=== PATIENT | male | born 1940 | race Caucasian/White ===

== ENCOUNTER 2018-01-08 17:26 | Emergency (ER) | payer BC ==
[~2018-01-08] VITALS: Ht 167.6 cm; Wt 94.1 kg
[~2018-01-08 17:26] MED LIST: INSU3SUS11 SUBQ; LISI10TA11 PO
[2018-01-08 17:31] VITALS: BP 137/75
--- NOTE | 2018-01-08 17:40 | NUR ---
PT. CAME INTO THE ED W/ DUE TO HIS DOCTOR RECOMMENDING HE COMES TO THE ED DUE TO A LOW O2 SAT READING WHEN HE WENT INTO HIS DOCTORS OFFICE. PT. STATES " I AM NOT SOB , I FEEL FINE, NO PAIN, I DID START HAVING A SLIGHT COUGH THIS MORNING THOUGH ". PT. AAOX4, NO SOB, DENIES N/V/D, DENIES CHEST PAIN, SKIN PINK AND DRY TO TOUCH. LS: CLEAR ANTERIOR AND POSTERIOR BILATERALLY. 0/10 PAIN. 02 SAT IS 96%. ER MD NOTIFIED. WILL CONTINUE TO MONITOR.
--- NOTE | 2018-01-08 17:56 | NUR ---
DR. CHAHAL EVALUATING PATIENT
[2018-01-08 18:58] LABS: BASOPHILS % (AUTO) 0.7 % (0.0-2.0); EOSINOPHILS # (AUTO) 0.4 K/uL (0-0.4); EOSINOPHILS % (AUTO) 5.8 % (0.0-4.0); HEMATOCRIT 41.2 % (36-52); HEMOGLOBIN 13.4 g/dL (12.0-18.0); LYMPHOCYTES # (AUTO) 1.9 K/uL (2.0-11.5); LYMPHOCYTES % (AUTO) 31.7 % (20.5-51.1); MEAN CORPUSCULAR HEMOGLOBIN 29 pg (27-31); MEAN CORPUSCULAR HGB CONC 33 g/dL (33-37); MEAN CORPUSCULAR VOLUME 87.3 fL (80-94); MONOCYTES # (AUTO) 0.5 K/uL (0.8-1.0); MONOCYTES % (AUTO) 8.1 % (1.7-9.3); NEUTROPHILS # (AUTO) 3.3 K/uL (1.8-7.7); NEUTROPHILS % (AUTO) 53.7 % (42.2-75.2); PLATELET COUNT (AUTO) 133 K/uL (140-450); RED BLOOD CELL COUNT(AUTO) 4.72 MIL/uL (4.20-6.10); RED CELL DISTRIBUTION WIDTH 16.7 % (11.6-13.7); WHITE BLOOD COUNT (AUTO) 6.1 K/uL (4.8-10.8)
[2018-01-08 19:12] LABS: ANION GAP 10.1 (8-16); CARBON DIOXIDE 30.1 mmol/L (21-32); CHLORIDE 104 mmol/L (98-107); CREATININE 0.8 mg/dL (0.7-1.3); GLUCOSE 286 mg/dL (74-106); POTASSIUM 4.2 mmol/L (3.5-5.1); SODIUM SERUM 140 mmol/L (136-145); UREA NITROGEN, BLOOD 16 mg/dL (7-18)
[2018-01-08 19:18] LABS: ALBUMIN 3.2 g/dL (3.4-5.0); ASPARTATE AMINOTRANSFERASE 20 U/L (15-37); TOTAL BILIRUBIN 0.5 mg/dL (0.0-1.0)
--- NOTE | 2018-01-08 19:23 | NUR ---
REPORT RECEIVED FROM KARELY DUPONT
--- NOTE | 2018-01-08 19:35 | NUR ---
PT SITTING QUIETLY IN BED. NO C/O PAIN AT THIS TIME. PT STATES MED HX: DM/HTN. PT STATES HE TAKES INSULIN 70/30 BID 30 UNITS.
--- NOTE | 2018-01-08 20:39 | NUR ---
Patient discharged with v/s stable. Written and verbal after care instructions given and explained. Patient verbalized understanding. Ambulatory with steady gait. All questions addressed prior to discharge. Advised to follow up with PMD.
[2018-01-08 20:40] VITALS: BP 115/62
== END 2018-01-08 20:39 | disposition home or self-care (01) ==
LOC: MED 17:26
DX: R06.02 Shortness of breath (principal); E11.9 Type 2 diabetes mellitus without complications; I10 Essential (primary) hypertension
CPT/HCPCS: 36415; 71045; 80053; 83880; 84484; 85025; 93005; 99285; Q0092

== ENCOUNTER 2023-05-23 12:13 | Inpatient (IN) | payer BC ==
[2023-05-23] VITALS (16 sets, daily range): BP systolic 94–138; BP diastolic 57–87; PULSE 70–91; RESP 18–33; TEMP 97.1–99; O2SAT 97–100
[~2023-05-23] VITALS: Ht 165.1 cm; Wt 89.8 kg
[~2023-05-23 12:13] MED LIST changes: +CALCIUM CHLORIDE 10% 100 MG/ML SYR IVP ONE; +EPINEPHrine PFS 0.1 MG/ML SYR IVP ONE; -LISI10TA11 PO; +LISI10TA31 PO
[2023-05-23] MEDS ORDERED: INTUBATION KIT MC ONE (12:14)
[2023-05-23] MEDS ORDERED: PROPOFOL 1000 MG/100 ML PREMIX 100 ML IV ONE ×2 (12:30)
[2023-05-23] MEDS ORDERED: NACL 0.9% 250 ML IV ONE (12:30)
[2023-05-23 13:04] LABS: BASOPHILS # (AUTO) 0.1 K/uL (0.00-0.22); BASOPHILS % (AUTO) 0.6 % (0.0-2.0); EOSINOPHILS # (AUTO) 0.1 K/uL (0-0.4); EOSINOPHILS % (AUTO) 1.1 % (0.0-4.0); HEMATOCRIT 33.1 % (36-52); HEMOGLOBIN 10.2 g/dL (12.0-18.0); LYMPHOCYTES # (AUTO) 6.7 K/uL (2.0-11.5); LYMPHOCYTES % (AUTO) 52.2 % (20.5-51.1); MEAN CORPUSCULAR HEMOGLOBIN 25 pg (27-31); MEAN CORPUSCULAR HGB CONC 31 g/dL (33-37); MEAN CORPUSCULAR VOLUME 79.4 fL (80-94); MONOCYTES # (AUTO) 0.5 K/uL (0.8-1.0); MONOCYTES % (AUTO) 4.1 % (1.7-9.3); NEUTROPHILS # (AUTO) 5.4 K/uL (1.8-7.7); PLATELET COUNT (AUTO) 146 K/uL (140-450); RED BLOOD CELL COUNT(AUTO) 4.16 MIL/uL (4.20-6.10); RED CELL DISTRIBUTION WIDTH 19.8 % (11.6-13.7); WHITE BLOOD COUNT (AUTO) 12.8 K/uL (4.8-10.8)
[2023-05-23] MEDS ORDERED: MORPHINE SULFATE 4 MG/ML SYR IVP PRN (13:15)
[2023-05-23] MEDS ORDERED: MAGNESIUM OXIDE 400 MG TAB PO PRN (13:15)
[2023-05-23] MEDS ORDERED: POTASSIUM CHLORIDE 10 MEQ TABER PO PRN (13:15)
[2023-05-23] MEDS ORDERED: KCL 20 MEQ IN 100 mL PREMIX 200 ML IV PRN (13:15)
[2023-05-23] MEDS ORDERED: ONDANSETRON 4 MG/2 ML VIAL IVP PRN (13:15)
[2023-05-23] MEDS ORDERED: ACETAMINOPHEN 325 MG TAB PO PRN (13:15)
[2023-05-23 13:23] LABS: ALANINE AMINOTRANSFERASE 32 U/L (12-78); ALBUMIN 2.3 g/dL (3.4-5.0); ALKALINE PHOSPHATASE 218 U/L (50-136); ANION GAP 13.5 (8-16); ASPARTATE AMINOTRANSFERASE 58 U/L (15-37); CALCIUM 8.3 mg/dL (8.5-10.1); CHLORIDE 93 mmol/L (98-107); CREATININE 1.1 mg/dL (0.6-1.3); GLUCOSE 217 mg/dL (74-106); POTASSIUM 5.5 mmol/L (3.5-5.1); SODIUM SERUM 126 mmol/L (136-145); TOTAL BILIRUBIN 0.6 mg/dL (0.0-1.0); TOTAL PROTEIN, SERUM 6.2 g/dL (6.4-8.2); UREA NITROGEN, BLOOD 15 mg/dL (7-18)
[2023-05-23 13:24] LABS: LIPASE 76 U/L (73-393)
[2023-05-23] MEDS ORDERED: NOREPINEPHRINE 4 MG in DEXTROSE 5% 250 ML IV SCH (13:50)
[2023-05-23] MEDS ORDERED: NOREPINEPHRINE 4 MG/4 ML VIAL IV ONE (14:24)
[2023-05-23 14:29] LABS: BLOOD GAS BASE EXCESS -5.7 mmol/L (-2.0-2.0); BLOOD GAS HCO3 19.5 mmol/L (22-26); BLOOD GAS PCO2 36.9 mmHg (35-45); BLOOD GAS PH 7.341 (7.35-7.45); BLOOD GAS PO2 150.7 mmHg (75-100)
[2023-05-23 14:32] LABS: BLOOD GAS O2 SAT% 98.8 % (92.0-98.5)
[2023-05-23] MEDS ORDERED: INSULIN REGULAR, HUMAN 100 UNIT/ML VIAL IV ONE (14:45)
[2023-05-23] MEDS ORDERED: FUROSEMIDE 40 MG/4 ML VIAL IVP SCH (14:45)
[2023-05-23] MEDS ORDERED: DEXTROSE 50% 50 ML SYR IVP ONE (14:45)
[2023-05-23] MEDS: BLOOD GLUCOSE MONITORING 1 DEV DEV FS SCH (18:00)
[2023-05-23] MEDS ORDERED: SODIUM POLYSTYRENE 15 GM/60 ML UDBTL NG ONE (18:35)
[2023-05-23] MEDS: DEXT 5% /NACL 0.9% 1,000 ML IV SCH (21:00)
[2023-05-23] MEDS ORDERED: SODIUM POLYSTYRENE 15 GM/60 ML UDBTL ONE (21:01)
[2023-05-23] MEDS: PIPERACILLIN/TAZOBACTAM 2.25 GM in DEXTROSE 5% 50 ML IV SCH (21:05)
[2023-05-23] MEDS: PROPOFOL 1000 MG/100 ML PREMIX 100 ML IV PRN (23:46)
[2023-05-24] VITALS (24 sets, daily range): BP systolic 94–139; BP diastolic 60–96; PULSE 70–87; RESP 17–30; TEMP 97.2–98.8; O2SAT 98–100
[2023-05-24] MEDS: PIPERACILLIN/TAZOBACTAM 2.25 GM in DEXTROSE 5% 50 ML IV SCH ×3 (05:13→21:03)
[2023-05-24] MEDS: BLOOD GLUCOSE MONITORING 1 DEV DEV FS SCH ×4 (05:56→18:45)
[2023-05-24] MEDS: INSULIN LISPRO SLIDING SCALE 100 UNITS/ML VIAL SUBQ PRN ×3 (06:01→18:47)
[2023-05-24 06:11] LABS: HEMATOCRIT 32.3 % (36-52); HEMOGLOBIN 10.3 g/dL (12.0-18.0); MEAN CORPUSCULAR HEMOGLOBIN 25 pg (27-31); MEAN CORPUSCULAR HGB CONC 32 g/dL (33-37); MEAN CORPUSCULAR VOLUME 76.7 fL (80-94); PLATELET COUNT (AUTO) 141 K/uL (140-450); RED CELL DISTRIBUTION WIDTH 19.6 % (11.6-13.7); WHITE BLOOD COUNT (AUTO) 16.1 K/uL (4.8-10.8)
[2023-05-24 06:22] LABS: ANION GAP 20.1 (8-16); CHLORIDE 91 mmol/L (98-107); CREATININE 1.6 mg/dL (0.6-1.3); GLUCOSE 168 mg/dL (74-106); SODIUM SERUM 126 mmol/L (136-145); UREA NITROGEN, BLOOD 27 mg/dL (7-18)
[2023-05-24 06:23] LABS: POTASSIUM 6.1 mmol/L (3.5-5.1)
[2023-05-24 06:34] LABS: MAGNESIUM 1.6 mg/dL (1.8-2.4); PHOSPHORUS 4.4 mg/dL (2.5-4.9)
[2023-05-24 06:57] LABS: BASOPHILS % (MANUAL) 0 % (0-2); EOSINOPHILS % (MANUAL) 0 % (0-4); LYMPHOCYTES % (MANUAL) 1 % (20-46); MONOCYTES % (MANUAL) 3 % (5-12)
[2023-05-24 06:58] LABS: PLATELET ESTIMATE SLIGHTLY DECREASED
[2023-05-24] MEDS ORDERED: SODIUM POLYSTYRENE 15 GM/60 ML UDBTL NG SCH (07:34)
[2023-05-24] MEDS: MAG SULF 2000 MG/WATER PREMIX 50 ML IV PRN (10:01)
[2023-05-24] MEDS: PROPOFOL 1000 MG/100 ML PREMIX 100 ML IV PRN (10:14)
[2023-05-24 14:50] LABS: ANION GAP 16.4 (8-16); CALCIUM 7.8 mg/dL (8.5-10.1); CARBON DIOXIDE 22.8 mmol/L (21-32); CHLORIDE 94 mmol/L (98-107); CREATININE 1.8 mg/dL (0.6-1.3); GLUCOSE 237 mg/dL (74-106); POTASSIUM 5.2 mmol/L (3.5-5.1); SODIUM SERUM 128 mmol/L (136-145); UREA NITROGEN, BLOOD 29 mg/dL (7-18)
[2023-05-24] MEDS ORDERED: levETIRAcetam 750 MG in NACL 0.9% 100 ML IV SCH ×2 (16:35→21:00)
[2023-05-24] MEDS ORDERED: PROPOFOL 1000 MG/100 ML PREMIX 100 ML IV ONE (16:37)
[2023-05-24] MEDS: DEXT 5% /NACL 0.9% 1,000 ML IV SCH (16:41)
[2023-05-24] MEDS ORDERED: PROPOFOL 1000 MG/100 ML PREMIX 100 ML IV PRN (16:45)
[2023-05-24] MEDS ORDERED: FUROSEMIDE 20 MG/2 ML VIAL IVP ONE (19:16)
[2023-05-24] MEDS ORDERED: levETIRAcetam 100 MG/ML VIAL IV ONE (21:28)
[2023-05-25] VITALS (27 sets, daily range): BP systolic 91–122; BP diastolic 44–84; PULSE 77–103; RESP 14–26; TEMP 96–97.7; O2SAT 98–100
[2023-05-25] MEDS: BLOOD GLUCOSE MONITORING 1 DEV DEV FS SCH ×4 (00:28→19:17)
[2023-05-25] MEDS: INSULIN LISPRO SLIDING SCALE 100 UNITS/ML VIAL SUBQ PRN ×2 (00:34→19:19)
[2023-05-25] MEDS: PIPERACILLIN/TAZOBACTAM 2.25 GM in DEXTROSE 5% 50 ML IV SCH ×3 (04:02→20:45)
[2023-05-25 04:05] LABS: BASOPHILS % (AUTO) 0.2 % (0.0-2.0); HEMATOCRIT 27.2 % (36-52); HEMOGLOBIN 8.6 g/dL (12.0-18.0); LYMPHOCYTES # (AUTO) 1.7 K/uL (2.0-11.5); LYMPHOCYTES % (AUTO) 15.2 % (20.5-51.1); MEAN CORPUSCULAR HEMOGLOBIN 24 pg (27-31); MEAN CORPUSCULAR HGB CONC 32 g/dL (33-37); MEAN CORPUSCULAR VOLUME 76.4 fL (80-94); MONOCYTES % (AUTO) 9.1 % (1.7-9.3); NEUTROPHILS # (AUTO) 8.6 K/uL (1.8-7.7); NEUTROPHILS % (AUTO) 75.5 % (42.2-75.2); PLATELET COUNT (AUTO) 141 K/uL (140-450); RED BLOOD CELL COUNT(AUTO) 3.57 MIL/uL (4.20-6.10); RED CELL DISTRIBUTION WIDTH 19.4 % (11.6-13.7); WHITE BLOOD COUNT (AUTO) 11.5 K/uL (4.8-10.8)
[2023-05-25 04:21] LABS: ANION GAP 14.9 (8-16); CARBON DIOXIDE 25.2 mmol/L (21-32); CHLORIDE 94 mmol/L (98-107); POTASSIUM 4.1 mmol/L (3.5-5.1); SODIUM SERUM 130 mmol/L (136-145)
[2023-05-25 04:52] LABS: CALCIUM 7.4 mg/dL (8.5-10.1); CREATININE 1.9 mg/dL (0.6-1.3); GLUCOSE 212 mg/dL (74-106); UREA NITROGEN, BLOOD 33 mg/dL (7-18)
[2023-05-25 04:55] LABS: MAGNESIUM 1.8 mg/dL (1.8-2.4); PHOSPHORUS 4.5 mg/dL (2.5-4.9)
[2023-05-25] MEDS: PROPOFOL 1000 MG/100 ML PREMIX 100 ML IV PRN (05:53)
[2023-05-25 07:15] LABS: BLOOD GAS BASE EXCESS -2.8 mmol/L (-2.0-2.0); BLOOD GAS HCO3 20.8 mmol/L (22-26); BLOOD GAS O2 SAT% 96.4 % (92.0-98.5); BLOOD GAS PCO2 31.5 mmHg (35-45); BLOOD GAS PH 7.437 (7.35-7.45); BLOOD GAS PO2 88.9 mmHg (75-100)
[2023-05-25] MEDS: FUROSEMIDE 40 MG/4 ML VIAL IVP SCH (09:00)
[2023-05-25] MEDS: DEXT 5% /NACL 0.9% 1,000 ML IV SCH (09:58)
[2023-05-25] MEDS: levETIRAcetam 750 MG in NACL 0.9% 100 ML IV SCH ×2 (10:07→20:54)
[2023-05-25 14:09] LABS: ANION GAP 15.8 (8-16); CALCIUM 6.8 mg/dL (8.5-10.1); CARBON DIOXIDE 23.3 mmol/L (21-32); CHLORIDE 95 mmol/L (98-107); CREATININE 1.9 mg/dL (0.6-1.3); GLUCOSE 241 mg/dL (74-106); POTASSIUM 4.1 mmol/L (3.5-5.1); SODIUM SERUM 130 mmol/L (136-145); UREA NITROGEN, BLOOD 35 mg/dL (7-18)
[2023-05-25 14:14] LABS: BASOPHILS % (AUTO) 0.1 % (0.0-2.0); EOSINOPHILS % (AUTO) 0.1 % (0.0-4.0); HEMATOCRIT 22.8 % (36-52); LYMPHOCYTES # (AUTO) 1.6 K/uL (2.0-11.5); LYMPHOCYTES % (AUTO) 15.2 % (20.5-51.1); MEAN CORPUSCULAR HEMOGLOBIN 25 pg (27-31); MEAN CORPUSCULAR HGB CONC 32 g/dL (33-37); MEAN CORPUSCULAR VOLUME 76.6 fL (80-94); MONOCYTES # (AUTO) 0.7 K/uL (0.8-1.0); MONOCYTES % (AUTO) 6.9 % (1.7-9.3); NEUTROPHILS # (AUTO) 8.1 K/uL (1.8-7.7); NEUTROPHILS % (AUTO) 77.7 % (42.2-75.2); PLATELET COUNT (AUTO) 130 K/uL (140-450); RED BLOOD CELL COUNT(AUTO) 2.97 MIL/uL (4.20-6.10); RED CELL DISTRIBUTION WIDTH 19.2 % (11.6-13.7); WHITE BLOOD COUNT (AUTO) 10.4 K/uL (4.8-10.8)
[2023-05-25 14:17] LABS: HEMOGLOBIN 7.3 g/dL (12.0-18.0)
[2023-05-25] MEDS ORDERED: NON ADHERENT DRESSING TP PRN (15:25)
[2023-05-25] MEDS ORDERED: FOAM DRESSING TP PRN (15:25)
[2023-05-25] MEDS ORDERED: Z-GUARD PASTE TP PRN (15:25)
[2023-05-25] MEDS: NON ADHERENT DRESSING TP SCH (17:00)
[2023-05-25] MEDS: FOAM DRESSING TP SCH (17:00)
[2023-05-25] MEDS ORDERED: SODIUM FERRIC GLUCONATE 125 MG in NACL 0.9% 100 ML IV ONE (23:20)
[2023-05-26] VITALS (22 sets, daily range): BP systolic 87–118; BP diastolic 42–72; PULSE 88–108; RESP 16–26; TEMP 94.6–98.3; O2SAT 98–100
[2023-05-26] MEDS: BLOOD GLUCOSE MONITORING 1 DEV DEV FS SCH ×3 (00:01→12:14)
[2023-05-26] MEDS: INSULIN LISPRO SLIDING SCALE 100 UNITS/ML VIAL SUBQ PRN ×3 (00:02→12:19)
[2023-05-26] MEDS: PROPOFOL 1000 MG/100 ML PREMIX 100 ML IV PRN (00:46)
[2023-05-26] MEDS ORDERED: SODIUM FERRIC GLUCONATE 12.5 MG/ML AMP IV ONE ×2 (00:55→00:58)
[2023-05-26] MEDS ORDERED: Z-GUARD PASTE TP SCH (01:00)
[2023-05-26] MEDS: DEXT 5% /NACL 0.9% 1,000 ML IV SCH (01:34)
[2023-05-26] MEDS: PIPERACILLIN/TAZOBACTAM 2.25 GM in DEXTROSE 5% 50 ML IV SCH ×2 (04:31→12:20)
[2023-05-26 05:24] LABS: BASOPHILS % (AUTO) 0.1 % (0.0-2.0); EOSINOPHILS % (AUTO) 0.1 % (0.0-4.0); LYMPHOCYTES # (AUTO) 1.6 K/uL (2.0-11.5); LYMPHOCYTES % (AUTO) 18.6 % (20.5-51.1); MEAN CORPUSCULAR HEMOGLOBIN 25 pg (27-31); MEAN CORPUSCULAR HGB CONC 33 g/dL (33-37); MEAN CORPUSCULAR VOLUME 76.3 fL (80-94); MONOCYTES # (AUTO) 0.6 K/uL (0.8-1.0); MONOCYTES % (AUTO) 7.5 % (1.7-9.3); NEUTROPHILS # (AUTO) 6.3 K/uL (1.8-7.7); NEUTROPHILS % (AUTO) 73.7 % (42.2-75.2); PLATELET COUNT (AUTO) 129 K/uL (140-450); RED BLOOD CELL COUNT(AUTO) 2.34 MIL/uL (4.20-6.10); RED CELL DISTRIBUTION WIDTH 18.8 % (11.6-13.7); WHITE BLOOD COUNT (AUTO) 8.6 K/uL (4.8-10.8)
[2023-05-26 05:34] LABS: MAGNESIUM 1.7 mg/dL (1.8-2.4); PHOSPHORUS 4.7 mg/dL (2.5-4.9)
[2023-05-26 05:35] LABS: HEMATOCRIT 17.9 % (36-52); HEMOGLOBIN 5.8 g/dL (12.0-18.0)
[2023-05-26 05:40] LABS: ANION GAP 15.3 (8-16); CALCIUM 6.9 mg/dL (8.5-10.1); CARBON DIOXIDE 23.7 mmol/L (21-32); CHLORIDE 97 mmol/L (98-107); CREATININE 2.1 mg/dL (0.6-1.3); GLUCOSE 245 mg/dL (74-106); SODIUM SERUM 132 mmol/L (136-145); UREA NITROGEN, BLOOD 43 mg/dL (7-18)
[2023-05-26 06:42] LABS: INR 1.85 (0.8-1.2); PARTIAL THROMBOPLASTIN TIME 47.9 secs (22-35.6); PROTHROMBIN TIME 18.9 secs (10.8-13.4)
[2023-05-26] MEDS: FUROSEMIDE 40 MG/4 ML VIAL IVP SCH (08:54)
[2023-05-26] MEDS: levETIRAcetam 750 MG in NACL 0.9% 100 ML IV SCH (08:55)
[2023-05-26] MEDS: MAG SULF 2000 MG/WATER PREMIX 50 ML IV PRN (11:05)
[2023-05-26] MEDS: NON ADHERENT DRESSING TP SCH (13:10)
[2023-05-26] MEDS: FOAM DRESSING TP SCH (13:10)
[2023-05-26] MEDS ORDERED: MORPHINE SULFATE 50 MG in NACL 0.9% 45 ML IV SCH (15:00)
[2023-05-26] MEDS ORDERED: COMMUNICATION ORDER MC PRN (15:10)
== END 2023-05-26 18:32 | DRG 208 ==
LOC: MED 12:13 → MIC 13:14
PROVIDERS: ADMIT Hospitalist; ATTEND Hospitalist
PROC: 5A1945Z Respiratory Ventilation, 24-96 Consecutive Hours (ICD-10-PCS; principal; 2023-05-23)
PROC: 0BH17EZ Insertion of Endotracheal Airway into Trachea, Via Natural or Artificial Opening (ICD-10-PCS; 2023-05-23)
PROC: 5A12012 Performance of Cardiac Output, Single, Manual (ICD-10-PCS; 2023-05-23)
PROC: 02HV33Z Insertion of Infusion Device into Superior Vena Cava, Percutaneous Approach (ICD-10-PCS; 2023-05-23)
PROC: B548ZZA Ultrasonography of Superior Vena Cava, Guidance (ICD-10-PCS; 2023-05-23)
PROC: 4A00X4Z Measurement of Central Nervous Electrical Activity, External Approach (ICD-10-PCS; 2023-05-26)
DX: J96.01 Acute respiratory failure with hypoxia (principal); I21.4 Non-ST elevation (NSTEMI) myocardial infarction; N17.9 Acute kidney failure, unspecified; G93.1 Anoxic brain damage, not elsewhere classified; G93.40 Encephalopathy, unspecified; E87.1 Hypo-osmolality and hyponatremia; I48.92 Unspecified atrial flutter; I46.9 Cardiac arrest, cause unspecified; E87.5 Hyperkalemia; E83.42 Hypomagnesemia; D72.829 Elevated white blood cell count, unspecified; D64.9 Anemia, unspecified; I25.5 Ischemic cardiomyopathy; I25.10 Atherosclerotic heart disease of native coronary artery without angina pectoris; Z95.0 Presence of cardiac pacemaker; Z95.1 Presence of aortocoronary bypass graft; I11.0 Hypertensive heart disease with heart failure; I50.9 Heart failure, unspecified; E11.9 Type 2 diabetes mellitus without complications; R57.0 Cardiogenic shock; Z66 Do not resuscitate
CPT/HCPCS: 36415; 36600; 70450; 71045; 80048; 80053; 82803; 82948; 83690; 83735; 83880; 84100; 84484; 85025; 85610; 85730; 87081; 92950; 93005; 94002; 94003; 95816; 99291; J0171; J1644; J1815; J1940; J1953; J2270; J2405; J2543; J2704; J2916; J3475; J3480; J3490; J7060; Q0092